=== PATIENT | female | born 1985 | race Caucasian/White ===

== ENCOUNTER 2021-12-27 07:27 | Inpatient (IN) ==
[2021-12-27] MEDS ORDERED: miSOPROStoL 200 MCG TABLET RECTAL PRN (07:50)
[2021-12-27] MEDS ORDERED: OXYTOCIN/LR 20 UNIT/1,000 ML BAG IV ONE ×2 (07:50→18:56)
[2021-12-27] MEDS ORDERED: TRANEXAMIC ACID 1,000 MG in SODIUM CHLORIDE 0.9% 100 ML IV PRN (07:50)
[2021-12-27] MEDS ORDERED: ONDANSETRON 4 MG/2 ML VIAL IV PRN ×2 (07:50→18:56)
[2021-12-27] MEDS ORDERED: LACTATED RINGERS 1,000 ML IV PRN (07:50)
[2021-12-27] MEDS ORDERED: CARBOPROST TROMETHAMINE 250 MCG/ML AMP IM PRN (07:50)
[2021-12-27] MEDS ORDERED: METHYLERGONOVINE 0.2 MG/1 ML AMP IM PRN (07:50)
[2021-12-27] MEDS ORDERED: diphenhydrAMINE 50 MG/1 ML VIAL IV PRN ×2 (08:21)
[2021-12-27] MEDS ORDERED: NALOXONE 0.4 MG/ML VIAL IV PRN (08:21)
[2021-12-27] MEDS ORDERED: CITRIC ACID/SODIUM CITRATE 30 ML UDCUP PO ONE (08:21)
[2021-12-27] MEDS ORDERED: hydrOXYzine HCL 25 MG/1 ML VIAL IM PRN (08:21)
[2021-12-27] MEDS ORDERED: PROMETHAZINE 25 MG/1 ML VIAL IM ONE (08:21)
[2021-12-27] MEDS ORDERED: FAMOTIDINE 20 MG/2 ML VIAL IV ONE (08:21)
[2021-12-27] MEDS ORDERED: ePHEDrine 50 MG/ML VIAL IV PRN (08:21)
[2021-12-27] MEDS ORDERED: ONDANSETRON 4 MG/2 ML VIAL IV ONE (08:21)
[2021-12-27] MEDS ORDERED: fentaNYL 2 MCG/ROPIV 0.2% EPID 100 ML EPIDURAL SCH (08:30)
[2021-12-27 09:11] LABS: Basophils # 0.1 10*3/uL (0.0-0.2); Basophils % 0.6 % (0.0-0.8); Eosinophils # 0.1 10*3/uL (0.0-0.87); Eosinophils % 0.8 % (0.00-10.9); Hematocrit 41.8 VOL% (35.7-47.0); Hemoglobin 13.2 GM/DL (12.0-16.0); Immature Granulocytes Absolute 0.43 #; Lymphocytes # 1.8 10*3/uL (1.4-4.0); Lymphocytes % 12.7 % (21.3-54.2); Mean Corpuscular HGB Conc 31.6 GM/DL (32-36); Mean Corpuscular Volume 93.9 FL (87-102); Mean Platelet Volume 10.1 FL (9.6-12.0); Monocytes % 7.1 % (1.7-12.7); Neutrophils % 75.8 % (38.7-73.9); Platelet Count 331 T/CUMM (130-400); Red Blood Count 4.45 MC/CUMM (3.8-5.5); Red Cell Distribution Width 15.2 % (9.3-17.3); White Blood Count 14.5 T/CUMM (4-12)
[2021-12-27] MEDS ORDERED: ceFAZolin 3,000 MG in SYRINGE 1 EACH IV ONE (09:17)
[2021-12-27 09:26] LABS: Alanine Aminotransferase 16 U/L (13-56); Albumin 2.5 G/DL (3.4-5.0); Alkaline Phosphatase 108 U/L (45-117); Aspartate Amino Transferase 14 U/L (0-37); Bilirubin,Total < 0.39 MG/DL (0.20-1.00); Blood Urea Nitrogen 6 MG/DL (7-18); Calcium 9.6 MG/DL (8.5-10.1); Carbon Dioxide 23 MMOL/L (21-32); Chloride 106 MMOL/L (98-107); Glucose 74 MG/DL (74-106); INR 0.9; Osmolality,Calculated 266.1 MOS/KG (273-304); PT Patient Result 10.3 SECS (10.5-12.0); Partial Thromboplastin Time 29.4 SECS (23.7-32.9); Potassium 3.7 MMOL/L (3.5-5.1); Sodium 135 MMOL/L (136-145); Total Protein 7.1 G/DL (6.4-8.2)
[2021-12-27] MEDS ORDERED: ACETAMINOPHEN INJ 1,000 MG/100 ML VIAL IV ONE (09:39)
[2021-12-27] MEDS ORDERED: buprenorphine HCL 0.3 MG/ML VIAL ONE (09:39)
[2021-12-27] MEDS ORDERED: DEXAMETHASONE 4 MG/1 ML VIAL ONE (09:39)
[2021-12-27] MEDS ORDERED: ONDANSETRON 4 MG/2 ML VIAL ONE (09:39)
[2021-12-27] MEDS ORDERED: BUPIVACAINE SPINAL 0.75% 2 ML AMP SPINAL ONE (09:39)
[2021-12-27] MEDS ORDERED: KETOROLAC 30 MG/1 ML VIAL ONE (09:39)
[2021-12-27] MEDS ORDERED: PHENYLEPHRINE 1 MG/10 ML SYRINGE IV ONE (09:57)
[2021-12-27] MEDS ORDERED: ePHEDrine 50 MG/ML VIAL ONE (09:57)
[2021-12-27] MEDS ORDERED: LACTATED RINGERS 1,000 ML IV ONE (10:24)
[2021-12-27] MEDS ORDERED: fentaNYL 100 MCG/2 ML VIAL ONE (10:27)
[2021-12-27 10:38] LABS: Cord Venous Blood HCO3 24.3 MMOL/L; Cord Venous Blood PCO2 43.7 MMHG; Cord Venous Blood PO2 34.1
[2021-12-27] MEDS ORDERED: TISSUE ADHESIVE 1 EACH APPLICATOR TOP ONE (10:46)
[2021-12-27] MEDS ORDERED: [UNRECOGNIZED DRUG - OTHER] IV ONE (16:04)
[2021-12-27] MEDS ORDERED: DIAZEPAM 10 MG/2 ML SYRINGE ONE (16:04)
[2021-12-27] MEDS ORDERED: MAGNESIUM SULF RIDER IV ONE (16:06)
[2021-12-27] MEDS: ACETAMINOPHEN 500 MG TABLET PO SCH ×2 (17:56→23:37)
[2021-12-27] MEDS: KETOROLAC 30 MG/1 ML VIAL IV SCH ×2 (17:56→23:38)
[2021-12-27] MEDS ORDERED: RHO(D) IMMUNE GLOBULIN 300 MCG SYRINGE IM ONE (18:56)
[2021-12-27] MEDS ORDERED: LACTATED RINGERS 1,000 ML IV SCH (18:56)
[2021-12-27] MEDS ORDERED: ACETAMINOPHEN 325 MG TABLET PO PRN (18:56)
[2021-12-27] MEDS ORDERED: SIMETHICONE CHEW 80 MG TABLET PO PRN (18:56)
[2021-12-27] MEDS ORDERED: MAGNESIUM HYDROXIDE SUSP 30 ML UDCUP PO PRN (18:56)
[2021-12-27] MEDS: ceFAZolin 2,000 MG in SODIUM CHLORIDE 0.9% 100 ML IV SCH (20:32)
[2021-12-27] MEDS: DOCUSATE SODIUM 100 MG CAPSULE PO SCH (22:19)
[2021-12-28 01:18] LABS: Basophils # 0.1 10*3/uL (0.0-0.2); Basophils % 0.4 % (0.0-0.8); Eosinophils % 0.2 % (0.00-10.9); Hematocrit 32.9 VOL% (35.7-47.0); Hemoglobin 10.5 GM/DL (12.0-16.0); Immature Granulocytes Absolute 0.39 #; Lymphocytes % 10.3 % (21.3-54.2); Mean Corpuscular HGB Conc 31.9 GM/DL (32-36); Mean Corpuscular Volume 93.2 FL (87-102); Mean Platelet Volume 9.8 FL (9.6-12.0); Monocytes # 1.9 10*3/uL (0.11-0.8); Monocytes % 9.8 % (1.7-12.7); Neutrophils % 77.3 % (38.7-73.9); Platelet Count 264 T/CUMM (130-400); Red Blood Count 3.53 MC/CUMM (3.8-5.5); Red Cell Distribution Width 15.2 % (9.3-17.3); White Blood Count 19.2 T/CUMM (4-12)
[2021-12-28] MEDS: ceFAZolin 2,000 MG in SODIUM CHLORIDE 0.9% 100 ML IV SCH (04:21)
[2021-12-28] MEDS ORDERED: KETOROLAC 30 MG/1 ML VIAL IV SCH (06:00)
[2021-12-28] MEDS ORDERED: ACETAMINOPHEN 500 MG TABLET PO SCH (06:00)
[2021-12-28 06:11] LABS: Basophils # 0.1 10*3/uL (0.0-0.2); Basophils % 0.4 % (0.0-0.8); Eosinophils # 0.1 10*3/uL (0.0-0.87); Eosinophils % 0.6 % (0.00-10.9); Hematocrit 33.4 VOL% (35.7-47.0); Hemoglobin 10.6 GM/DL (12.0-16.0); Immature Granulocytes % 2.2 %; Immature Granulocytes Absolute 0.37 #; Lymphocytes # 2.5 10*3/uL (1.4-4.0); Lymphocytes % 14.9 % (21.3-54.2); Mean Corpuscular HGB Conc 31.7 GM/DL (32-36); Mean Corpuscular Volume 93.6 FL (87-102); Mean Platelet Volume 9.7 FL (9.6-12.0); Monocytes # 1.5 10*3/uL (0.11-0.8); Monocytes % 8.7 % (1.7-12.7); Neutrophils % 73.2 % (38.7-73.9); Platelet Count 252 T/CUMM (130-400); Red Blood Count 3.57 MC/CUMM (3.8-5.5); Red Cell Distribution Width 15.1 % (9.3-17.3)
[2021-12-28] MEDS: ENOXAPARIN 30 MG/0.3 ML SYRINGE SUBCUT SCH ×2 (08:40→21:07)
[2021-12-28] MEDS: MULTIVITAMIN (PRENATAL) TABLET PO SCH (08:40)
[2021-12-28] MEDS: DOCUSATE SODIUM 100 MG CAPSULE PO SCH ×2 (08:40→21:06)
[2021-12-28] MEDS: IBUPROFEN 800 MG TABLET PO PRN ×2 (13:39→21:06)
[2021-12-28] MEDS ORDERED: ACETAMINOPHEN 500 MG TABLET ONE (16:18)
[2021-12-28] MEDS: ACETAMINOPHEN 500 MG TABLET PO PRN ×2 (16:20→23:10)
[2021-12-29] MEDS: IBUPROFEN 800 MG TABLET PO PRN (04:15)
[2021-12-29 08:01] VITALS: BP 129/71
[2021-12-29] MEDS: DOCUSATE SODIUM 100 MG CAPSULE PO SCH (09:45)
[2021-12-29] MEDS: ENOXAPARIN 30 MG/0.3 ML SYRINGE SUBCUT SCH (09:46)
[2021-12-29] MEDS: MULTIVITAMIN (PRENATAL) TABLET PO SCH (10:00)
== END 2021-12-29 11:00 | disposition home or self-care (01) | DRG 787 ==
LOC: N.LDOUT 07:27 → N.LD 07:35 → N.OB 20:45 → UNDODISIN 12-29 11:00
PROVIDERS: ADMIT Student in an Organized Health Care Education/Training Program; ATTEND Student in an Organized Health Care Education/Training Program
PROC: LDCSECT (ICD-10-PCS; 2021-12-27 09:40)